=== PATIENT | female | born 1925 | race Caucasian/White ===

== ENCOUNTER 2017-03-23 18:15 | Emergency (ER) | payer OTHER ==
[~2017-03-23] VITALS: Ht 177.8 cm; Wt 45.4 kg
--- NOTE | 2017-03-23 18:45 | NUR ---
BIB [facility],EPISODE OF CONFUSION WHICH RESOLVED SPONTANEOUSLY UPON EMS ARRIVAL. PATIENT IS CURRENTLY A/OX3. BREATHING EVEN AND UNLABORED. NO SOB. VITALS STABLE. SAFETY AND COMFORT MEASURES IN PLACE. AWAITING MD ORDERS.
--- NOTE | 2017-03-23 18:55 | NUR ---
NEW IV STARTED ON RFA, 20 G. BLOOD DRAWN AND SENT TO LAB. PATIENT MEDICATED PER MD ORDERS .
[2017-03-23] MEDS ORDERED: IV NS 0.9% 1,000 ML BAG IV ONE (19:00)
[2017-03-23 19:23] LABS: CARBON DIOXIDE 32 mmol/L (21-32); CHLORIDE 100 mmol/L (98-107); CREATININE 0.7 mg/dL (0.6-1.3); GLUCOSE 111 mg/dL (74-106); POTASSIUM 4.5 mmol/L (3.5-5.1); SODIUM SERUM 137 mmol/L (136-145); UREA NITROGEN, BLOOD 28 mg/dL (7-18)
[2017-03-23 19:28] LABS: ALANINE AMINOTRANSFERASE 21 U/L (12-78); ALBUMIN 3.9 g/dL (3.4-5.0); ALKALINE PHOSPHATASE 57 U/L (46-116); ASPARTATE AMINOTRANSFERASE 21 U/L (15-37); BILIRUBIN,DIRECT 0.1 mg/dL (0.0-0.2); BILIRUBIN,TOTAL 0.4 mg/dL (0.2-1.0); TOTAL PROTEIN, SERUM 7.8 g/dL (6.4-8.2)
[2017-03-23 19:30] LABS: TROPONIN I < 0.017 ng/mL (0.00-0.056)
[2017-03-23 19:32] LABS: INR 0.89 (0.87-1.13); PROTHROMBIN TIME 9.3 SECS (9.5-12.7)
--- NOTE | 2017-03-23 19:33 | NUR ---
REPORT GIVEN TO JUAN PAVON FOR [facility].
[2017-03-23 19:34] LABS: BASOPHILS # (AUTO) 0.1 /CMM (0.0-0.2); BASOPHILS % (AUTO) 0.8 % (0.0-2.0); EOSINOPHILS % (AUTO) 0.7 % (0.0-6.0); HEMATOCRIT 34 % (33-45); LYMPHOCYTES # (AUTO) 1.2 /CMM (0.8-4.8); LYMPHOCYTES % (AUTO) 18.2 % (20.0-44.0); MEAN CORPUSCULAR HEMOGLOBIN 31 PG (26.0-33.0); MEAN CORPUSCULAR HGB CONC 35 g/dl (31.0-36.0); MEAN CORPUSCULAR VOLUME 90 fL (82-100); MONOCYTES # (AUTO) 0.5 /CMM (0.1-1.30); MONOCYTES % (AUTO) 8.1 % (2.0-12.0); NEUTROPHILS # (AUTO) 4.8 /CMM (1.8-8.9); NEUTROPHILS % (AUTO) 72.2 % (43.0-81.0); PLATELET COUNT (AUTO) 294 /CMM (150-450); RDW COEFFICIENT OF VARIATION 13.7 (11.5-15.0); RED BLOOD CELL COUNT(AUTO) 3.82 MIL/uL (4.0-5.2); WHITE BLOOD COUNT (AUTO) 6.6 K/uL (4.3-11.0)
--- NOTE | 2017-03-23 19:34 | NUR ---
REPORT RECEIVED FROM JUAN HALL [facility].
--- NOTE | 2017-03-23 20:00 | NUR ---
[facility], GAVE INITIAL SET OF VITALS
--- NOTE | 2017-03-23 20:07 | NUR ---
[facility], AWAITING CALL BACK FROM [facility]
[2017-03-23 20:23] LABS: APPEARANCE,URINE Clear (CLEAR); BILIRUBIN,URINE Negative (NEGATIVE); BLOOD, URINE Negative Ery/uL (NEGATIVE); COLOR,URINE Yellow (YELLOW); KETONES,URINE Negative (NEGATIVE); LEUKOCYTE ESTERASE ,URINE Trace (NEGATIVE); NITRITE, URINE Negative (NEGATIVE); PROTEIN,URINE 30 mg/dl (NEGATIVE); UGLUCOSE Negative (NEGATIVE); UROBILINOGEN,URINE 0.2 EU/dL (0.2)
[2017-03-23] MEDS ORDERED: hydrALAZINE HCL IV 20 MG VIAL IV ONE (20:30)
[2017-03-23 20:35] LABS: BACTERIA,URINE 1+ /HPF (None Seen); RBC,URINE 0-2 /HPF (0-2); SQUAMOUS EPITHELIAL CELL,UR Few /HPF (None Seen)
--- NOTE | 2017-03-23 20:36 | NUR ---
NATHANIEL SALINAS SPOKE TO [facility]
[2017-03-23] MEDS ORDERED: hydrALAZINE HCL IV 20 MG VIAL ONE (20:44)
[2017-03-23] MEDS ORDERED: ASPIRIN 81 MG TAB.CHEW ONE (20:44)
--- NOTE | 2017-03-23 20:52 | NUR ---
RECEIVED CALL FROM [facility], PT ACCEPTED TO [facility] ER BY , NUMBER FOR REPORT IS [phone]. [facility] SHOULD ARRIVE BY [phone].
[2017-03-23 21:00] VITALS: BP 166/80
[2017-03-23] MEDS ORDERED: ASPIRIN 81 MG TAB.CHEW PO ONE (21:00)
--- NOTE | 2017-03-23 21:10 | NUR ---
REPORT CALLED TO JUAN HAMILTON AT [facility] FOR [facility].
--- NOTE | 2017-03-23 21:52 | NUR ---
REPORT GIVEN TO NANCY WITH PRN #[id number] FOR [facility] FOR TRANSFER.
== END 2017-03-23 21:59 | disposition short-term general hospital (02) ==
LOC: ER 18:16
DX: G45.9 Transient cerebral ischemic attack, unspecified (principal); I10 Essential (primary) hypertension; Z79.82 Long term (current) use of aspirin
CPT/HCPCS: 36415; 70450-TC; 71010-TC; 80048-TC; 80076-TC; 81000-TC; 83605-TC; 84484-TC; 85025-TC; 85730-TC; 87040-TC; 87086-TC; A4606; J0360; Z7610